=== PATIENT | female | born 1960 | race Caucasian/White ===

== ENCOUNTER 2020-09-06 07:59 | Outpatient (REF) | payer OTHER, SELFPAY ==
--- NOTE | ~2020-09-06 | MM_ITS ---
EXAMINATION: MM SCREENING DIGITAL BREAST TOMOSYNTHESIS, BILATERAL CLINICAL INFORMATION: Screening. Asymptomatic. The lifetime risk of breast cancer based on the Tyrer-Cuzick Model is 20.1%. Additional annual screening with breast MRI may be of benefit in women with a Score of 20% or greater. COMPARISON: Mammography: 06/18/2019 and studies dating back to 09/18/2011 TECHNIQUE: Digital breast tomosynthesis is performed in both the craniocaudal and mediolateral oblique views along with computer-aided detection (CAD). Synthesized 2-D images are generated from the tomosynthesis. FINDINGS: The breasts are heterogeneously dense, which may obscure small masses (ACR BI-RADS breast composition Category c). There is a density about the inferior medial aspect of the left breast approximately 3 cm from the nipple, which is becoming more prominent since previous studies before 06/18/2019. Spot compression view and possible ultrasound of this is recommended. There is stable appearance of the right breast. MM/MM tomosynthesis screening BI IMPRESSION: Left breast density for further evaluation, as described. ASSESSMENT: BI-RADS 0: Incomplete - Need Additional Imaging Evaluation. RECOMMENDATION: 1. Additional views of the left breast. 2. Targeted ultrasound if warranted after review of the additional views. 3. Radiology department staff will contact the patient for additional imaging. This patient's information was entered into a reminder system with a target due date for their next mammogram.
== END 2020-09-06 08:00 | disposition home or self-care (01) ==
LOC: HO.MAMMO 07:59
PROVIDERS: PCP Internal Medicine; Visit Provider Internal Medicine
DX: Z12.31 Encounter for screening mammogram for malignant neoplasm of breast (principal)
CPT/HCPCS: 77063; 77067

== ENCOUNTER 2020-10-04 08:50 | Outpatient (REF) | payer OTHER, SELFPAY ==
--- NOTE | ~2020-10-04 | MM_ITS ---
EXAMINATION: MM DIAGNOSTIC DIGITAL BREAST TOMOSYNTHESIS, LEFT US TARGETED LEFT BREAST ULTRASOUND CLINICAL INFORMATION: Left breast density. COMPARISON: Mammography: 09/06/2020 and studies dating back to 09/18/2011. TECHNIQUE: Digital breast tomosynthesis is performed. 2D images are generated from the tomosynthesis. The following views are obtained: Spot compression left breast craniocaudal and mediolateral oblique views performed. Targeted left breast ultrasound anterior aspect. FINDINGS: The breasts are heterogeneously dense, which may obscure small masses (ACR BI-RADS breast composition Category c). There is question of persistent density which is not well circumscribed, approximately 2.5 cm from the nipple, about the inferior and slightly medial aspect. Targeted left breast ultrasound was performed. There is an approximately 6 x 5 x 5 mm poorly circumscribed hypoechoic lesion which may represent part of the ductal system. There does appear to be a small amount of internal vascularity present and the possibility of papilloma cannot be excluded. There is some increased distal sound enhancement without distal sound shadowing. This lies at the 8 o'clock position, approximately 3 cm from the nipple. Ultrasound-guided core biopsy is recommended. Results are discussed with the patient at time of visit. The Breast Center Navigator called the above recommendation to referring provider's office. MM/MM tomosynthesis added views L IMPRESSION: Left breast indeterminate-appearing lesion 8 o'clock position, 3 cm from nipple for which ultrasound-guided core biopsy is recommended. ASSESSMENT: BI-RADS 4: Suspicious (subcategory 4A: Low suspicion for malignancy) RECOMMENDATION: Ultrasound-guided core biopsy left breast.
--- NOTE | ~2020-10-04 | US_ITS ---
EXAMINATION: US DIAGNOSTIC ULTRASOUND BREAST, LEFT CLINICAL INFORMATION: Asymmetric density left breast. COMPARISON: Mammography of same day as well as studies dating back to September 18, 2011. TECHNIQUE: Ultrasound of the breast is performed with real-time feliciano scale imaging and color Doppler. FINDINGS: Targeted left breast ultrasound was performed. There is an approximately 6 x 5 x 5 mm poorly circumscribed hypoechoic lesion which may represent part of the ductal system. There does appear to be a small amount of internal vascularity present and possibility of papilloma cannot be excluded. There is some increased distal sound enhancement without distal sound shadowing. This lies at the 8:00 position approximately 3 cm from the nipple. Ultrasound-guided core biopsy is recommended. Results are discussed with the patient at time of visit. The breast Center navigator called the above recommendation to referring provider's office. US/US breast LT limited IMPRESSION: Left breast indeterminate appearing lesion 8:00 position 3 cm from nipple for which ultrasound-guided core biopsy is recommended. ASSESSMENT: BI-RADS 4: Suspicious (subcategory 4A: Low suspicion for malignancy) RECOMMENDATION: Ultrasound-guided core biopsy left breast
== END 2020-10-04 08:51 | disposition home or self-care (01) ==
LOC: HO.MAMMO 08:50
PROVIDERS: Visit Provider Internal Medicine
DX: R92.8 Other abnormal and inconclusive findings on diagnostic imaging of breast (principal)
CPT/HCPCS: 76642; 77061; 77065

== ENCOUNTER 2020-10-10 07:50 | Outpatient (REF) | payer OTHER, SELFPAY ==
--- NOTE | ~2020-10-10 | MM_ITS ---
EXAMINATION: ULTRASOUND GUIDED CORE BIOPSY BREAST, LEFT POST PROCEDURE DIGITAL MAMMOGRAM, LEFT CLINICAL INFORMATION: Subcentimeter hypoechoic lesion lower left breast on ultrasound recommended for tissue sampling. COMPARISON: Mammography 09/06/2020, 10/04/2020, targeted left breast ultrasound 10/04/2020. FINDINGS: Proper informed consent is obtained from the patient after discussion of the procedure, potential risks and complications, and alternatives. Patient was given an opportunity for questions. The patient appeared to understand. The patient consented to the procedure and signed the consent form. GUIDANCE: Ultrasound-guided; aseptic technique. LESION: Small hypoechoic lesion lower left breast approximately 0.6 x 0.5 x 0.5 cm. APPROACH: Mediolateral. ANESTHESIA: 10 mL 1% lidocaine. DERMATOTOMY: Single skin leobardo dermatotomy performed. NEEDLE: 14-gauge Achieve core biopsy device with 13.5-gauge co-axial guide needle. CORES: 6. CLIP: HydroMARK; shape: butterfly. POST PROCEDURE UNILATERAL DIGITAL MAMMOGRAM: The post biopsy mammogram is performed in separate room using separate digital mammography equipment from the biopsy procedure. CC and LM views are obtained. The breasts are heterogeneously dense, which may obscure small masses (breast composition category: c). The clip marker is deployed in position. No gross hematoma. The patient tolerated the procedure well. No immediate complications. Home instructions reviewed with the patient. Final pathology results are pending. MM/MM diagnostic mammo unilat LT IMPRESSION: 1. Status post ultrasound-guided core biopsy left breast. 2. Clip placed: HydroMARK; shape: butterfly. 3. Pathology pending. An addendum report will be issued.
== END 2020-10-10 07:51 | disposition home or self-care (01) ==
LOC: HO.MAMMO 07:50
PROVIDERS: Visit Provider Internal Medicine
DX: R92.8 Other abnormal and inconclusive findings on diagnostic imaging of breast (principal)
CPT/HCPCS: 19083; 77065; 88305

== ENCOUNTER 2021-04-09 13:08 | Outpatient (REF) | payer OTHER, SELFPAY ==
--- NOTE | ~2021-04-09 | MM_ITS ---
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 Family history breast cancer, mother. The lifetime risk of breast cancer based on the Tyrer-Cuzick Model is 19.7%. COMPARISON: Mammography: 10/10/2020, 10/04/2020, 09/06/2020, 06/18/2019, 06/17/2018 TECHNIQUE: Digital breast tomosynthesis is performed in both the craniocaudal and mediolateral oblique views along with computer-aided detection (CAD). Synthesized 2D images are generated from the tomosynthesis. FINDINGS: The breasts are heterogeneously dense, which may obscure small masses (ACR BI-RADS breast composition Category c). Breast tissue composition borders on average fibroglandular. There is a biopsy clip marker anterior lower central breast. Parenchymal pattern is similar to prior exams. There is no developing density or interval suspicious changes. No abnormal calcifications. Results are provided to the patient at time of visit by the technologist. MM/MM tomosynthesis diagnostic LT IMPRESSION: No mammographic evidence of malignancy. ASSESSMENT: BI-RADS 2: Benign RECOMMENDATION: Routine annual mammography screening, due in 6 months. This patient's information was entered into a reminder system with a target due date for their next mammogram.
== END 2021-04-09 13:09 | disposition home or self-care (01) ==
LOC: HO.MAMMO 13:08
PROVIDERS: Visit Provider Internal Medicine
DX: Z98.890 Other specified postprocedural states (principal)
CPT/HCPCS: 77061; 77065

== ENCOUNTER 2021-09-10 07:46 | Outpatient (REF) | payer OTHER, SELFPAY ==
--- NOTE | ~2021-09-10 | MM_ITS ---
EXAMINATION: MM SCREENING DIGITAL BREAST TOMOSYNTHESIS, BILATERAL CLINICAL INFORMATION: Screening. Asymptomatic. Ultrasound-guided left breast biopsy 10/10/2020 (stromal fibrosis). The lifetime risk of breast cancer based on the Tyrer-Cuzick Model is 18%. COMPARISON: Mammography: 04/09/2021, 10/10/2020, 10/04/2020, 09/06/2020, 06/18/2019; ultrasound left breast 10/10/2020, 10/04/2020. TECHNIQUE: Digital breast tomosynthesis is performed in both the craniocaudal and mediolateral oblique views along with computer-aided detection (CAD). Synthesized 2D images are generated from the tomosynthesis. FINDINGS: There are scattered areas of fibroglandular density (ACR BI-RADS breast composition Category b). There are no significant masses, abnormal calcifications, or other abnormalities. Parenchymal pattern is similar to prior studies. Biopsy clip marker again noted central 8:00 left breast. There are no significant changes. MM/MM tomosynthesis screening BI IMPRESSION: No mammographic evidence of malignancy. ASSESSMENT: BI-RADS 1: Negative RECOMMENDATION: Routine annual mammography screening. This patient's information was entered into a reminder system with a target due date for their next mammogram.
== END 2021-09-10 07:47 | disposition home or self-care (01) ==
LOC: HO.MAMMO 07:46
PROVIDERS: PCP Internal Medicine; Visit Provider Internal Medicine
DX: Z12.31 Encounter for screening mammogram for malignant neoplasm of breast (principal)
CPT/HCPCS: 77063; 77067

== ENCOUNTER 2024-07-30 06:51 | Day surgery (SDC) | payer OTHER, SELFPAY ==
[2024-07-28 12:39] VITALS: BMI 28.6
--- NOTE | 2024-07-29 09:20 | HO.ANESPROP2 ---
Documented by User: Natasha Garduno NP 07/29/24 09:20 HPI - Anesthesia Eval Consult details Narrative: 64yo F for Colon[facility] Past Medical History Medical History Tubular adenoma Neuropathy Hyperlipidemia Hx of radiation therapy History of chemotherapy Breast cancer, left HTN (hypertension) Surgical History Surgical History History of removal of Port-a-Cath History of bunionectomy Hx of tonsillectomy Hx of section H/O colonoscopy History of lymph node dissection of axilla Hx of lumpectomy Social History Social History Are you a primary patient care specialist to a significant other at home: No Do you presently have visiting nurse or other home services: No Patient Tobacco Use Status: Former Tobacco user Tobacco use type: Cigarette Meds Allergies Allergy/AdvReac Type Severity Reaction Status Date / Time Penicillins Allergy Unknown CHILDHOOD Verified 07/30/24 07:22 ALLERGY- UNKNOWN Home Medications ?Medication ?Instructions ?Recorded ?Confirmed ?Last Taken ?Type atenolol 25 mg tablet 25 mg PO DAILY 07/28/24 07/30/24 07/30/24 History calcium carbonate 1,000 mg PO DAILY 07/28/24 07/30/24 Unknown History cholecalciferol (vitamin D3) 10 10 mcg PO DAILY 07/28/24 07/30/24 Unknown History mcg (400 unit) capsule (Vitamin D3) letrozole 2.5 mg tablet 2.5 mg PO DAILY 07/28/24 07/30/24 Unknown History multivitamin 1 tab PO DAILY 07/28/24 07/30/24 Unknown History vitamin B complex 1 cap PO DAILY 07/28/24 07/30/24 Unknown History Exam Height,Weight and Vital Signs: Height 5 ft 5 in Weight 78.018 kg Assessment and Plan Assessment Anesthesia Assessment: Chart Reviewed Documented by User: Adriana Blackburn MD 07/30/24 08:36 [facility] Past Medical History Medical History Tubular adenoma Neuropathy Hyperlipidemia Hx of radiation therapy History of chemotherapy Breast cancer, left HTN (hypertension) Surgical History Surgical History History of removal of Port-a-Cath History of bunionectomy Hx of tonsillectomy Hx of section H/O colonoscopy History of lymph node dissection of axilla Hx of lumpectomy History of Problems with Anesthesia: No Social History Social History Are you a primary patient care specialist to a significant other at home: No Do you presently have visiting nurse or other home services: No Patient Tobacco Use Status: Former Tobacco user Tobacco use type: Cigarette Meds Allergies Allergy/AdvReac Type Severity Reaction Status Date / Time Penicillins Allergy Unknown CHILDHOOD Verified 07/30/24 07:22 ALLERGY- UNKNOWN Home Medications ?Medication ?Instructions ?Recorded ?Confirmed ?Last Taken ?Type atenolol 25 mg tablet 25 mg PO DAILY 07/28/24 07/30/24 07/30/24 History calcium carbonate 1,000 mg PO DAILY 07/28/24 07/30/24 Unknown History cholecalciferol (vitamin D3) 10 10 mcg PO DAILY 07/28/24 07/30/24 Unknown History mcg (400 unit) capsule (Vitamin D3) letrozole 2.5 mg tablet 2.5 mg PO DAILY 07/28/24 07/30/24 Unknown History multivitamin 1 tab PO DAILY 07/28/24 07/30/24 Unknown History vitamin B complex 1 cap PO DAILY 07/28/24 07/30/24 Unknown History Exam Airway Mallampati Class: II TM Dist: >3cm Neck ROM: Full Loose/Missing/Broken Teeth: No Heart: RRR Lungs: CTA Assessment and Plan Assessment Anesthesia Assessment: Anesthesia Plan Discussed Final Anesthetic Review History of Problems with Anesthesia: No NPO: Yes ASA Class: II Final Preanesthetic Review: Meds/Allgs Chart Reviewed, Consent Obtained/Reviewed and Anes Risks/Benef Reviewed Patient Risk: Low Procedure Risk: Low Anesthetic Plan Anesthetic Plan: MAC: Disposition: Standard PACU
[2024-07-30 07:36] VITALS: BP 118/68; PULSE 70; RESP 16; TEMP 36.2; O2SAT 98
[2024-07-30] MEDS: Lactated Ringers 1,000 ML 100 ML IVCONT (07:44)
--- NOTE | 2024-07-30 08:20 | MHC.SHP ---
Pre-Procedural Eval Section A - 24 Hr Update-Section A only Date of Service: 07/30/24 Section B - Complete if H&P > 30 days Chief Complaint: screening Details of Present Illness: see h&p no changes Relevant Family History (Specify if Yes): No Relevant Social History: None Present Medications: see Short Stay Collaborative assessment Medical History: No relevant PMH Allergies: Allergies Allergy/AdvReac Type Severity Reaction Status Date / Time Penicillins Allergy Unknown CHILDHOOD Verified 07/30/24 07:22 ALLERGY- UNKNOWN Review of Systems Sugical H&P ROS: Negative: Constitution, Cardiovascular, Respiratory, Neurological, Psychiatric, Hem-Onc, Allergic/Immunologic, Gastrointestinal, Genitourinary, Musculoskeletal, Integumentary, Endocrine and Eyes/Ears/Nose/Throat Exam Surgical H&P Exam: Normal: HEENT, Normal: Heart, Normal: Lungs, Normal: Extremities, Normal: Abdomen, Normal: Skin and Normal: Neurological Plan Diagnosis/Plan: Unchanged I have reviewed the history and physical and performed a pertinent physical examination on my patient. No changes have occurred unless specified. Time Spent With Patient Time: Total time managing care of this patient today ____ minutes.
[2024-07-30 08:53] VITALS: BP 90/47; PULSE 59; RESP 18; TEMP 36.4; O2SAT 98
[2024-07-30 09:08] VITALS: BP 144/78; PULSE 62; RESP 16; TEMP 36.4; O2SAT 98
--- NOTE | 2024-07-30 09:18 | OP_ITS ---
DATE OF SERVICE: 07/30/2024 SURGEON: King Kelly MD INDICATIONS: Colon cancer screening and prior history of adenomatous colon polyps. PREOPERATIVE DIAGNOSIS: POSTOPERATIVE DIAGNOSIS: PROCEDURE PERFORMED: Colonoscopy to the terminal ileum with biopsy. ESTIMATED BLOOD LOSS: COMPLICATIONS: ANESTHESIA: Monitored anesthesia care. ASSISTANTS: SPECIMENS: DESCRIPTION OF PROCEDURE: A history and physical was performed. The risks and benefits of the procedure were explained to the patient and informed consent was obtained. The patient was placed in the left lateral decubitus position. A digital rectal exam was performed and was found to be normal. The Olympus pediatric video colonoscope was introduced into the rectum and advanced to the cecum. The cecum was identified by transillumination, palpation, and identification of ileocecal valve. Examination was performed and the scope was removed. She tolerated the procedure well and was returned to recovery area in stable condition. FINDINGS: The terminal ileum was normal. The visualized colonic mucosa was normal. The quality of the prep was good. A single polyp measuring less than 5 mm was identified in the right colon at 65 cm from the anal verge. This was removed with biopsy forceps. No other polyps were identified. The quality of the prep was good. Retroflexed examination showed some small internal hemorrhoids. IMPRESSION: Colon polyp. RECOMMENDATION: Follow up the biopsy results. MD ARAMIS Ramos/[id number] / [id number]
== END 2024-07-30 09:26 | disposition home or self-care (01) ==
PROVIDERS: PCP Internal Medicine; Visit Provider Internal Medicine Gastroenterology
PROC: 0DJD8ZZ Inspection of Lower Intestinal Tract, Via Natural or Artificial Opening Endoscopic (ICD-10-PCS; CPT 45378; principal; 2024-07-30 08:20)
DX: Z12.11 Encounter for screening for malignant neoplasm of colon (principal); Z86.0101 Personal history of adenomatous and serrated colon polyps; D12.4 Benign neoplasm of descending colon; Z66 Do not resuscitate; K64.8 Other hemorrhoids; I10 Essential (primary) hypertension; E78.5 Hyperlipidemia, unspecified; C50.912 Malignant neoplasm of unspecified site of left female breast; Z79.811 Long term (current) use of aromatase inhibitors; Z92.21 Personal history of antineoplastic chemotherapy; Z92.3 Personal history of irradiation; G62.9 Polyneuropathy, unspecified; Z79.899 Other long term (current) drug therapy; Z88.0 Allergy status to penicillin; Z98.890 Other specified postprocedural states
CPT/HCPCS: 45380; 88305; J2003; J2704